=== PATIENT | female | born 1995 | race African-American/Black ===

== ENCOUNTER 2017-07-22 12:21 | Inpatient (IN) | payer BC, OTHER ==
[2017-07-22] MEDS ORDERED: MAGNESIUM HYDROXIDE 2,400 MG/10 ML CUP PO PRN (13:31)
[2017-07-22] MEDS ORDERED: MAG HYDROX/AL HYDROX/SIMETH 30 ML CUP PO PRN (13:31)
[2017-07-22 15:25] VITALS: BMI 21.2
--- NOTE | 2017-07-22 16:06 | P.HP ---
Psychiatric H&P - . H&P Date: 07/22/17 History & Physical: Allergies Allergy/AdvReac Type Severity Reaction Status Date / Time No Known Allergies Allergy Verified 07/22/17 13:31 Vital Signs Temp 100.0 F H 07/22/17 15:18 Pulse 87 07/22/17 15:18 Resp 16 07/22/17 15:18 BP 125/72 07/22/17 15:18 Pulse Ox Intake & Output 07/21/17 07/22/17 07/22/17 18:59 06:59 18:59 Weight 59.562 kg 07/22/17 15:49 Identification:Abdirahman Mitchell is a 22 years old single black female living in [facility]. She was admitted to [facility] on 07/22/2016 under a petition stating that she has major depression and is suicidal. History of present illness: Patient was transferred from [facility] after day stabilized her for psychiatric management. Apparently patient's live-in boyfriend killed himself by hanging yesterday, she became distraught got drunk, thoughts of suicide, changed her mind and called the police. She was taken to the hospital and after preliminary work up and stabilization she was sent here her blood alcohol level when she went to the ER there was 182 and UDS was positive for cannabis. Patient said she was quite distraught and had suicidal thoughts but currently she denies any suicidal thoughts. Apparently she was living with her boyfriend for 6-7 months and they were friends for about one year. Apparently her boyfriend was on probation and was drinking became fearful that the church worker may send him to [facility] and kill himself. Patient reported that she has been having depression for the last 2 years after her dad all of a sudden. Her depression comes and goes lasting for a few minutes. She handles it by working full-time. She denies any manic episodes. She denies hallucinations and delusional thinking. She denies any anger management issues. She said she overreacts to situations but she did not engage in any self abusive behavior overdosing etc. Previous psychiatric history/alcohol and drug abuse: She was never in a psychiatric hospital. She saw a therapist for about 3 months since she felt she had to learn better coping skills until April of this year since she did not have any health insurance. She does not take any psychiatric medication. She has been drinking alcohol for the last about 3 years she says she drinks only socially and does not get drunk. However she said she can drink about half a pint of liquor at times she did not have any DUI or PI. She denies any problem socially or vocationally because of drinking. She said she was smoking pot in the past until about a month ago. She said she was smoking only once every 2 weeks however she is still positive for cannabis. She denies abusing other drugs. Previous medical history: She is not ALLERGIC to any medication. She has bronchial asthma but she uses inhalers only once in a while. Her last menstrual period was on 07/01/2017, increase regular but she gets cramps. She was never and had no surgery. Social history: She said she had 2 years of college and studied psychology and criminology. She met her boyfriend who was good to her and she quit college. Apparently she was working and supporting him to go to school. However he became very controlling and they split up. She said she was on Adderall from sixth grade to 12th grade for ADD. But she said her friends liked her better when she was not taking Adderall than when she date. She denies having had any issues with discipline or learning when she was going to school. She was quiet and stayed to herself and she was growing up she was adopted at the age of 9 months since her mother was a drug addict and her father did not want to have the responsibility of raising her. They were not . She was raised well by her adopted parents without any abuse. She was living with her latest boyfriend for 6-7 months. When she leaves here she will be returning to her apartment but she thinks she will spend some time with the parents of her latest boyfriend. Her previous boyfriend was for 4 years. 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 She does not have health insurance. She said she did not take the time to fill out forms to get health insurance. She was not in the service. She is Taoism and does not go to mosque. She is heterosexual. She denies any pending legal issues. She has 5 tattoos on her limbs and trunk she has 9 earrings and one nose star. Family history: Her biological mother is a drug addict. Mental status examination: This is a thin ambulatory black female with good hygiene. She has straight hair she has tattoos and piercings as noted above. She does not show any psychomotor agitation or retardation. Her speech is spontaneous relevant and goal-directed. Her mood is euthymic and affect is somewhat labile. She got tearful when she was talking about her late boyfriend' s . She denies hallucinations and delusional thinking. She insists that she is not suicidal. She denies homicidal ideas also. Her insight is fair and judgment is impaired as evidenced by recent intoxication, becoming suicidal etc. She said today is 07/20/2017. She is able to recall 3 out of 3 items after 5 minutes. She is able to name the last 4 presidents correctly. She is able to spell house both forwards and backwards correctly. She is able to say 8 +7 is 15 and 87 is 56. 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 Alcohol use disorder severe F 10.20. Cannabis use disorder mild F 12.10. NKDA. Bronchial asthma. Treatment plan: She will have physical examination and psychosocial evaluation. She will receive milieu therapy group therapy individual therapy occupational therapy recreational therapy and medication education. She will be observed for suicidal behavior. She will be detoxed if necessary according to the protocol. She will not be started on any psychiatric medications at this point since I do not see any psychiatric condition that can be treated with medication. But we will use when necessary Vistaril for anxiety, when necessary Restoril for insomnia etc. Discharge with outpatient follow-up. Treatment goal: She will continue to be free of suicide thoughts. She will learn better coping skills. Estimated length of stay: 2-3 days.
[2017-07-22] MEDS ORDERED: TEMAZEPAM 15 MG CAP PO PRN (16:07)
[2017-07-22] MEDS ORDERED: TEMAZEPAM 15 MG CAP PO SCH (21:00)
[2017-07-22] MEDS: hydrOXYzine PAMOATE 25 MG CAP PO PRN (23:32)
[2017-07-23] MEDS ORDERED: traZODone HCL 50 MG TAB PO PRN (14:06)
--- NOTE | 2017-07-23 14:12 | P.PN ---
Progress Note - Text Interval history: The patient is found in the hallway she follows me to an interview room. The patient was admitted to the mental health unit as she was experiencing dysphoric symptoms due to the recent suicide of her boyfriend. She states they have been together for approximately one year and have been residing together. He had violated probation and was fearful he was going to senior care and hung himself. She feels overwhelmed by this and is experiencing a grief reaction. They have been residing together and she is not sure where she will reside. She also shares that she is uncomfortable asking for help from family although its likely available. She described having symptoms of depression before this event it appears she may have some social anxiety or generalized anxiety symptoms that require further exploration. Mental status exam: The patient is a thin -[place] female appearing her stated age. She has a visible tattoo on her upper extremity. She seated calmly in the chair she is cooperative and pleasant. She maintains a constricted affect. She endorses a sad mood and feelings of uncertainty but describes no acute suicidal ideation. She is reporting no homicidal ideation. It appears that she does have an undercurrent of anxiety symptoms that cause her to be avoidant in numerous circumstances. She will tend to isolate and limits help from family. She is reporting no auditory or visual hallucinations or any specific delusions. She demonstrates no tangential thinking loose associations or flight of ideas. Insight and judgment limited at this time. She is fully oriented. He Plan: The patient is currently not prescribed any psychotropic medication other than as needed for sleep. She states that she has done better with trazodone in the past so we will initiate that as needed and discontinue the Restoril. I suspect she may benefit from an antidepressant for mood and anxiety symptoms which appear to be present even before this recent traumatic event. She clearly would respond to continued individual psychotherapy as she has been working with Jyoti Yang in the recent past. We will monitor her for safety and encourage continued participation in the milieu.
--- NOTE | 2017-07-23 16:42 | P.CONS ---
History of Present Illness - Reason for Consult Medical clearance - History of Present Illness 22-year-old pleasant female admitted secondary to anxiety episode patient today woke up and started feeling anxiety and the this anxiety feeling is mostly in the epigastric area beyond that patient denied any symptoms of nausea vomiting cough chest pain fever chills dysuria. Review of Systems REVIEW OF SYSTEMS: CONSTITUTIONAL: No fever, no malaise, no fatigue. HEENT: No recent visual problems or hearing problems. Denied any sore throat. CARDIOVASCULAR: No chest pain, orthopnea, PND, no palpitations, no syncope. PULMONARY: No shortness of breath, no cough, no hemoptysis. GASTROINTESTINAL: No diarrhea, no nausea, no vomiting, no abdominal pain. Normoactive bowel sounds. NEUROLOGICAL: No headaches, no weakness, no numbness. HEMATOLOGICAL: Denies any bleeding or petechiae. GENITOURINARY: Denies any burning micturition, frequency, or urgency. MUSCULOSKELETAL/RHEUMATOLOGICAL: Denies any joint pain, swelling, or any muscle pain. ENDOCRINE: Denies any polyuria or polydipsia. The rest of the 14-point review of systems is negative. Past Medical History Past Medical History: Asthma History of Any Multi-Drug Resistant Organisms: None Reported Past Surgical History: No Surgical Hx Reported Smoking Status: Never smoker Past Alcohol Use History: Occasional Additional Past Alcohol Use History / Comment(s): 3- 4 drinks 3-4 times a week Past Drug Use History: Marijuana Medications and Allergies Home Medications Medication Instructions Recorded Confirmed Type Ibuprofen [Motrin] 800 mg PO TID PRN 07/22/17 07/22/17 History Allergies Allergy/AdvReac Type Severity Reaction Status Date / Time No Known Allergies Allergy Verified 07/22/17 13:31 Physical Exam Vitals: Vital Signs Temp Pulse Resp BP 07/23/17 06:48 98.1 F 77 16 125/59 PHYSICAL EXAMINATION: GENERAL: The patient is alert and oriented x3, not in any acute distress. Well developed, well nourished. HEENT: Pupils are round and equally reacting to light. EOMI. No scleral icterus. No conjunctival pallor. Normocephalic, atraumatic. No pharyngeal erythema. No thyromegaly. CARDIOVASCULAR: S1 and S2 present. No murmurs, rubs, or gallops. PULMONARY: Chest is clear to auscultation, no wheezing or crackles. ABDOMEN: Soft, nontender, nondistended, normoactive bowel sounds. No palpable organomegaly. MUSCULOSKELETAL: No joint swelling or deformity. EXTREMITIES: No cyanosis, clubbing, or pedal edema. NEUROLOGICAL: Gross neurological examination did not reveal any focal deficits. SKIN: No rashes. Assessment and Plan Plan: -Anxiety disorder: Management as per primary service -Epigastric abdominal discomfort is an anxiety disorder no further intervention at this point of time recommendations from medicine perspective.
--- NOTE | 2017-07-24 13:07 | P.PN ---
Progress Note - Text Interval history: The patient is found in the front as she follows me to an interview room. She reports that her moods improving. Her sister visited last evening and she found that supportive. The patient states that the trazodone cause nasal congestion and does not plan on using any further. She has been attending groups. She is expressing no acute suicidal ideation. She plans on returning home to her own apartment as she doesn't feel ready to leave and live somewhere else yet. Mental status exam: The patient is alert she is dressed in her own clothing hygiene grooming are good. Eye contact is appropriate. Speech is fluent and spontaneous nonpressured. She is able to demonstrate a range of affect. She reports no acute suicidal ideation intent or plan now homicidal ideation intent or plan. She is endorsing no auditory or visual hallucinations or any specific delusions. Insight and judgment improving. She is oriented to person place and date. She demonstrates no verbal or physical aggressiveness. She readily participates in the conversation and is pleasant and cooperative. Plan: The patient will continue participating in the milieu. It appears that she is starting to clinically stabilized. Again we discussed having her consider an antidepressant for her presumed baseline symptoms as an outpatient and she is agreeable. She is willing to work with an individual therapist upon discharge. Vital signs reviewed.
--- NOTE | 2017-07-25 09:50 | P.PN ---
Progress Note - Text Progress Note Date: 07/25/17 Patient was seen for routine follow-up examination. She does not have any specific complaints. She continues to deny suicide and homicide thoughts. She is not on any medications and has not shown any suicidal, homicidal, bizarre, confused behavior. She is socializes with peers and interacts with staff and attends groups. She has not talked with the social work professor about her discharge plan. She was advised to stay with her parents and not to drink after she leaves the hospital for a while since she is still bereaving. She agreed with this suggestion. This is a black ambulatory female with good hygiene. She is polite and cooperative. She does not show any psychomotor agitation or retardation. Her speech is spontaneous relevant and goal-directed. Her mood is euthymic and affect is appropriate. She denies hallucinations, delusional thinking, suicidal and homicidal ideas. She is well oriented with good memory concentration general knowledge etc. Plan: Continue milieu and other therapies. Consider discharging once the social work professor has completed the discharge plan.
--- NOTE | 2017-07-25 11:59 | P.DS ---
Providers Date of admission: 07/22/17 14:52 Expected date of discharge: 07/25/17 Attending physician: Aicha Chowdhury Consults: 07/22/17 13:31 Consult Physician Routine Consulting Provider: Rick Meade Consult Reason/Comments: follow up H & P Do you want consulting provider notified?: Yes Primary care physician: [facility] Course: Patient had her psychiatric evaluation, physical examination and psychosocial evaluation. After psychiatric evaluation it was decided not to start her on any medications on a regular basis and was given only when necessary medications. She received milieu therapy group therapy individual therapy occupational therapy and medication education. She participated in group activities and milieu. She continues to deny suicidal and homicidal ideas. She agrees to go and stay with her parents for a short time until she feels better regarding her boyfriends suicide recently. In view of this the treatment team agreed to discharge her today. Condition on discharge: This is a black ambulatory female with good hygiene. She does not show any psychomotor agitation or retardation. Her speech is spontaneous relevant and goal-directed. Her mood is euthymic and affect is appropriate. She continues to deny suicide and homicide thoughts. She denies hallucinations and delusional thinking. She is well oriented with good memory concentration general fund of knowledge etc. Her insight and judgment are adequate. Agnosticon discharge: Adjustment disorder with mixed disturbance of conduct F 43.25. Alcohol use disorder severe F 10.20. Cannabis use disorder mild F 12.10. NKDA. Bronchial asthma. Patient was advised and agreed to seek outpatient counseling including alcohol and drug counseling, to learn better coping skills through therapy, to report to her psychiatrist if she gets , to call her psychiatrist or therapist if she gets suicidal thoughts and if she cannot get hold of them to go to nearest ER. Plan - Discharge Summary Discharge Rx Participant: No New Discharge Prescriptions: Discontinued Ibuprofen [Motrin] 800 mg PO TID PRN PRN Reason: pain
[2017-07-25] MEDS: ACETAMINOPHEN TAB 325 MG TAB PO PRN (17:15)
[2017-07-26] MEDS: hydrOXYzine PAMOATE 25 MG CAP PO PRN (00:30)
[2017-07-26 06:36] VITALS: BP 118/75; PULSE 82; RESP 18; TEMP 98.5
--- NOTE | 2017-07-26 08:19 | P.EN ---
The social service liaison was not able to contact the family yesterday and so her discharge was deferred to today. She is doing well and there is no change in her condition. Plan: Discharge today.
[2017-07-26] MEDS: ACETAMINOPHEN TAB 325 MG TAB PO PRN (10:24)
== END 2017-07-26 15:09 | disposition home or self-care (01) | DRG 882 ==
LOC: 3MHU 14:52
PROVIDERS: ADMIT Psychiatry & Neurology Psychiatry; ATTEND Psychiatry & Neurology Psychiatry
DX: F43.25 Adjustment disorder with mixed disturbance of emotions and conduct (principal); R45.851 Suicidal ideations; F41.9 Anxiety disorder, unspecified; J45.909 Unspecified asthma, uncomplicated; F32.9 Major depressive disorder, single episode, unspecified; F12.90 Cannabis use, unspecified, uncomplicated; F10.20 Alcohol dependence, uncomplicated; Z79.1 Long term (current) use of non-steroidal anti-inflammatories (NSAID); Z63.4 Disappearance and death of family member; Z81.3 Family history of other psychoactive substance abuse and dependence